=== PATIENT | female | born 1955 | race American Indian/Alaskan Native ===

== ENCOUNTER 2019-02-20 08:10 | Emergency (ER) | payer OTHER ==
[2019-02-20] MEDS ORDERED: IBUPROFEN PO ONE (08:49)
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
[2019-02-20 11:04] VITALS: BP 164/80
== END 2019-02-20 11:03 | disposition home or self-care (01) ==
LOC: ED 08:10
DX: S93.602A Unspecified sprain of left foot, initial encounter (principal); S62.002A Unspecified fracture of navicular [scaphoid] bone of left wrist, initial encounter for closed fracture; S39.012A Strain of muscle, fascia and tendon of lower back, initial encounter; I10 Essential (primary) hypertension; E11.9 Type 2 diabetes mellitus without complications; F17.200 Nicotine dependence, unspecified, uncomplicated; Z88.8 Allergy status to other drugs, medicaments and biological substances; V49.49XA Driver injured in collision with other motor vehicles in traffic accident, initial encounter; Y93.89 Activity, other specified; Y92.410 Unspecified street and highway as the place of occurrence of the external cause; Y99.8 Other external cause status
CPT/HCPCS: 72100